=== PATIENT | female | born 1965 | race Hispanic/Latino ===

== ENCOUNTER 2016-11-18 11:27 | Emergency (ER) | payer SELFPAY ==
[~2016-11-18 11:27] MED LIST: AMITRIPTYLINE H25 M1 PO; AMITRIPTYLINE H50 M1 PO; AZO STANDARD97.5 M1 PO; BACTRIM DS TAB1 EAC2 PO; BLOOD PRESSURE MED; BP MED PO; CIPRO500 M2 PO; CIPRO500 MG PO; CITRATE OF MAG300 M1 PO; COLACE100 M1 PO; COMPAZINE10 MG PO; CYCLOBENZAPRINE5 M1 PO; DELTASONE20 MG PO; DIAZEPAM5 M2 PO; ELAVIL25 MG PO; GABAPENTIN300 MG PO; HUMALOG100 UNITS/ SC; HYDROCHLOROTH12.5 M3 PO; HYDROCODON-ACE1 EA16 PO; HYDROCODON-ACE1 EA17 PO; IMITREX5 MG; KEFLEX500 MG PO; LANTUS100 U/ML SC; LANTUS100 UNITS/ SC; LEVEMIR FL100 UNIT/2 SC; LEVEMIR100 UNITS/ SC; LISINOPRIL10 M1 PO; LISINOPRIL40 MG PO; MELOXICAM15 MG PO; METHOTREXATE2.5 M1 PO; METHOTREXATE2.5 MG PO; MIRALAX17 G2 PO; MOTRIN600 MG PO; NAPROSYN500 M1 PO; NAPROXEN SODIUM; NEURONTIN600 M1 PO; NEURONTIN600 MG PO; NORCO 5-325 TA1 EACH PO; NORCO 5/325 TAB1 TAB PO; NORCO 5/3251 TAB PO; NOVOLOG100 UNITS/ SC; PREDNISONE20 M1 PO; PRILOSEC40 M1 PO; PYRIDIUM PO; ROBAXIN-750750 M1 PO; SOMA250 M1 PO; SYNTHROID25 MCG PO; THYROID MEDICATION PO; TOPAMAX50 MG PO; TRAMADOL HCL50 M2 PO; TRAMADOL HCL50 MG PO; TYLENOL EXTRA500 M1 PO; TYLENOL WITH C1 EACH PO; ULTRAM50 M1 PO; ULTRAM50 MG PO; UNKNOWN BP MED; VALIUM5 M1; VERAPAMIL ER180 M1 PO; VERAPAMIL ER180 M2 PO; ZANTAC150 M1 PO; ZESTRIL40 M2 PO; ZOFRAN ODT4 MG/UDTAB PO
[2016-11-18] MEDS ORDERED: HYDROCODON-ACE1 EA16 PO (12:07)
[2016-11-18] MEDS ORDERED: METHOTREXA25 MG/1 M6 SC (12:09)
[2017-02-05] MEDS ORDERED: LEVEMIR100 UNITS/ (21:01)
[2017-02-06] MEDS ORDERED: HYDROCHLOROTHIA25 M1 PO (08:33)
== END 2016-11-18 13:37 ==
LOC: EDMED 11:27
DX: R51 Headache (principal); R11.2 Nausea with vomiting, unspecified; E11.9 Type 2 diabetes mellitus without complications; I10 Essential (primary) hypertension; M06.9 Rheumatoid arthritis, unspecified; Z79.4 Long term (current) use of insulin; Z79.899 Other long term (current) drug therapy
CPT/HCPCS: J0780; J1200; J1885; J7030

== ENCOUNTER 2016-11-30 22:36 | Observation (INO) | payer SELFPAY ==
[~2016-11-30 22:36] MED LIST changes: +METHOTREXA25 MG/1 M6 SC
[2016-11-30 22:51] LABS: BASO % 0.6 % (0-2); EOS % 5.1 % (0-7); EOSINOPHIL ABSOLUTE COUNT 0.3 tho/cmm (0.0-0.7); HCT-HEMATOCRIT 29.3 % (34.0-49.0); HGB-HEMOGLOBIN 9.2 gm/dl (12.0-15.5); IMMATURE GRANULOCYTES ABSOLUTE 0.01 tho/cmm (0-0.03); IMMATURE GRANULOCYTES PERCENT 0.2 % (0-0.3); LYMPH % 38.3 % (20-45); MCH (MEAN CORPUSCULAR HGB) 27.7 pg (28.0-32.0); MCHC MEAN CORPUSCULAR HGB CONC 31.4 % (32.0-36.0); MCV (MEAN CELL VOLUME) 88.3 fl (82.0-96.0); MEAN PLATELET VOLUME 8.5 cmc (9.4-12.4); MONO % 4.7 % (0-12); MONOCYTE ABSOLUTE COUNT 0.3 tho/cmm (0.0-1.2); NEUTROPHIL ABSOLUTE COUNT 2.7 tho/cmm (1.6-8.0); NEUTROPHIL-AUTOMATED 2.7 tho/cmm (1.6-8.0); NEUTROPHILS % 51.1 % (40-80); PLATELET COUNT 421 tho/cmm (150-450); RED BLOOD COUNT 3.32 mil/cmm (4.00-5.20); RED CELL DISTRIBUTION WIDTH 17.3 % (12.4-16.4); WHITE BLOOD COUNT 5.3 tho/cmm (4.0-10.0)
[2016-11-30 23:07] LABS: ALB/GLOB RATIO 0.7 (0.8-2.0); ALBUMIN 3.6 g/dl (3.5-5.0); ALKALINE PHOSPHATASE 125 U/L (33-138); ALT/SGPT 18 U/L (12-78); ANION GAP 15 mmol/L (0-20); AST/SGOT 19 U/L (10-40); BILIRUBIN,TOTAL 0.2 mg/dl (0-1.5); BLOOD UREA NITROGEN 28 mg/dl (6-24); CALCIUM 8.7 mg/dl (8.5-10.5); CARBON DIOXIDE-VENOUS 21 mmol/L (22-32); CHLORIDE 106 mmol/l (96-110); CREATININE 1.55 mg/dl (0.50-1.10); GLUCOSE 192 mg/dL (70-110); SODIUM 137 mmol/L (135-145); eGFR VALUE FOR BLACK 44 mL/Min
[2016-11-30 23:08] LABS: POTASSIUM 4.8 mmol/L (3.7-5.1)
[2016-12-01 07:43] LABS: ANION GAP 15 mmol/L (0-20); BLOOD UREA NITROGEN 27 mg/dl (6-24); CALCIUM 8.4 mg/dl (8.5-10.5); CARBON DIOXIDE-VENOUS 21 mmol/L (22-32); CHLORIDE 113 mmol/l (96-110); CHOLESTEROL 150 mg/dl (120-200); CREATININE 0.98 mg/dl (0.50-1.10); GLUCOSE 106 mg/dL (70-110); HDL CHOLESTEROL 35 mg/dl (40-60); LDL CHOLESTEROL 64 mg/dl (0-99); POTASSIUM 4.5 mmol/L (3.7-5.1); SODIUM 144 mmol/L (135-145); VLDL 51 mg/dl (0-30); eGFR VALUE FOR BLACK 77 mL/Min
[2016-12-01 08:00] LABS: TRIGLYCERIDES 255 mg/dl (<149)
[2017-02-05] MEDS ORDERED: LEVEMIR100 UNITS/ (21:01)
[2017-02-06] MEDS ORDERED: HYDROCHLOROTHIA25 M1 PO (08:33)
== END 2016-12-01 12:00 ==
LOC: EDMED 22:36 → EMR2 12-01 03:36 → CAR1 12-01 04:00
PROVIDERS: Emergency Medicine; Registered Nurse; ADMIT Hospitalist
DX: R07.89 Other chest pain (principal); E11.40 Type 2 diabetes mellitus with diabetic neuropathy, unspecified; M06.9 Rheumatoid arthritis, unspecified; I10 Essential (primary) hypertension; F41.9 Anxiety disorder, unspecified; D63.8 Anemia in other chronic diseases classified elsewhere; G43.909 Migraine, unspecified, not intractable, without status migrainosus; E86.0 Dehydration; N17.9 Acute kidney failure, unspecified; Z79.4 Long term (current) use of insulin; Z79.899 Other long term (current) drug therapy; Z87.11 Personal history of peptic ulcer disease; Z98.890 Other specified postprocedural states
CPT/HCPCS: A9540; A9558; G0202; G0206; G0378; J3010; J7030

== ENCOUNTER 2017-01-08 09:01 | Emergency (ER) | payer SELFPAY ==
[2017-01-08 09:34] LABS: BASO % 0.2 % (0-2); EOS % 6.5 % (0-7); EOSINOPHIL ABSOLUTE COUNT 0.4 tho/cmm (0.0-0.7); HCT-HEMATOCRIT 26.6 % (34.0-49.0); HGB-HEMOGLOBIN 8.4 gm/dl (12.0-15.5); LYMPH % 20.9 % (20-45); LYMPH ABSOLUTE COUNT 1.1 tho/cmm (0.8-4.5); MCH (MEAN CORPUSCULAR HGB) 26.6 pg (28.0-32.0); MCHC MEAN CORPUSCULAR HGB CONC 31.6 % (32.0-36.0); MCV (MEAN CELL VOLUME) 84.2 fl (82.0-96.0); MEAN PLATELET VOLUME 8.2 cmc (9.4-12.4); MONO % 3.9 % (0-12); MONOCYTE ABSOLUTE COUNT 0.2 tho/cmm (0.0-1.2); NEUTROPHIL ABSOLUTE COUNT 3.7 tho/cmm (1.6-8.0); NEUTROPHIL-AUTOMATED 3.7 tho/cmm (1.6-8.0); NEUTROPHILS % 68.5 % (40-80); PLATELET COUNT 303 tho/cmm (150-450); RED BLOOD COUNT 3.16 mil/cmm (4.00-5.20); RED CELL DISTRIBUTION WIDTH 17.2 % (12.4-16.4); WHITE BLOOD COUNT 5.4 tho/cmm (4.0-10.0)
[2017-01-08] MEDS ORDERED: EXCEDRIN MIGRA1 EAC3 PO (09:38)
[2017-01-08] MEDS ORDERED: BUSPIRONE HCL10 M2 PO (09:39)
[2017-01-08 09:55] LABS: ANION GAP 17 mmol/L (0-20); BLOOD UREA NITROGEN 25 mg/dl (6-24); CALCIUM 9.2 mg/dl (8.5-10.5); CARBON DIOXIDE-VENOUS 17 mmol/L (22-32); CHLORIDE 107 mmol/l (96-110); CREATININE 0.89 mg/dl (0.50-1.10); GLUCOSE 122 mg/dL (70-110); POTASSIUM 4.1 mmol/L (3.7-5.1); SODIUM 137 mmol/L (135-145); eGFR VALUE FOR BLACK 87 mL/Min
[2017-01-08] MEDS ORDERED: REGLAN10 M2 PO (11:15)
[2017-02-05] MEDS ORDERED: LEVEMIR100 UNITS/ (21:01)
[2017-02-06] MEDS ORDERED: HYDROCHLOROTHIA25 M1 PO (08:33)
== END 2017-01-08 11:22 ==
LOC: EDMED 09:01
PROVIDERS: Emergency Medicine
DX: G43.909 Migraine, unspecified, not intractable, without status migrainosus (principal); D64.9 Anemia, unspecified; M06.9 Rheumatoid arthritis, unspecified; E11.9 Type 2 diabetes mellitus without complications; Z79.4 Long term (current) use of insulin; Z88.5 Allergy status to narcotic agent; Z88.1 Allergy status to other antibiotic agents; Z79.82 Long term (current) use of aspirin; Z79.899 Other long term (current) drug therapy
CPT/HCPCS: J1200; J1885; J2765; J7030